=== PATIENT | male | born 1990 | race Asian ===

== ENCOUNTER 2024-07-07 21:57 | Emergency (ER) | payer OTHER, SELFPAY ==
[2024-07-07 21:58] VITALS: BP 147/96
--- NOTE | 2024-07-07 22:30 | EDRN ---
active bleeding. Dog up to date on shots per imaging technician.
--- NOTE | 2024-07-08 00:32 | ED.SKININJ ---
HPI-Injury
General
Chief Complaint: Bite
Source: patient and spouse
Exam Limitations: none
Time Seen by Provider: 07/08/24 00:20
Nursing documentation reviewed up to this point in time: agreed with
History of Present Illness-Injury
Initial Injury comments:
34-year-old male with no chronic medical issues presents for evaluation of dog bite. Patient says that he was laying next to his dog and startled the dog and it bit him on the right side of his face. He also got a scratch on his right arm. Came
to the ER for assessment. Patient unsure of his tetanus status. Dog is up-to-date on all vaccinations.
Review of Systems
Review of Systems
All Other Systems: ROS reviewed and negative except as documented in HPI and ROS
Skin: Reports other (Dog bite)
Phy Exam
Physical Exam
Physical Exam:
General: Well appearing and non-toxic
HEENT: protecting airway
Neck: appears supple
CV: No evidence of cyanosis
Resp: No accessory muscle use
Abd: Non-distended
Extremities: No deformities
Neuro: Alert
Psych: Normal affect
Skin: Patient has jagged/macerated laceration right lower cheek just above the jawline; he has minor superficial scratch on the right dorsal forearm
Scores
Heart Failure Risk
Heart Failure Risk Score: Not Applicable
Heart Score for Chest Pain Patients
STEMI patient?: Not applicable
Withdrawal Assessment of Alcohol
Withdrawal Assessment Completed?: Not applicable
Course
Orders/Labs/Results
Orders:
Orders
07/08/24 00:31
Amoxicillin 875 mg/Clav 125 mg [Augmentin 875 mg/125 mg] 1 tablet PO NOW STA
Tetanus/Diphth/Acelpertussis [Adacel] 0.5 ml IM .ONCE ONE
07/08/24 00:32
Lidocaine/Epinephrine/Tetracai [Let Topical Anesthetic Gel] 3 ml TOPICAL NOW STA
Vital Signs
Initial and Last Documented VS:
Initial Vital Signs
Temp Pulse Resp BP Pulse Ox
36.8 C 75 20 147/96 99
07/07/24 21:58 07/07/24 21:58 07/07/24 21:58 07/07/24 21:58 07/07/24 21:58
Last Documented Vital Signs
Temp Pulse Resp BP Pulse Ox
36.8 C 75 20 147/96 99
07/07/24 21:58 07/07/24 21:58 07/07/24 21:58 07/07/24 21:58 07/07/24 21:58
Procedures
Laceration Closure
Right Face:
Status of Wound: dirty and bite
Size of Wound in cm: 5
Description of Wound Edges: ragged
Preparation: cleaned with saline
Anesthesia: 1% Lidocaine with epi and Topical-LET
Revision/Debridement: minor revision and irrigate-direct pressure
Wound exploration: extensive cleaning of contaminated wound
Type of Closure: single layer closure
Skin Closure Material: 6-0 prolene
Number of sutures: 8
MDM/Problems Addressed
Differential Diagnosis Includes:
Dog bite
MDM/Problems Addressed:
34-year-old male presents with dog bite to the right lower face also has minor scratch to the right forearm. Vitals and exam as above. Dog is up-to-date on vaccinations. Patient unsure of his own tetanus status. Will update tetanus. Vigorously
irrigate and repair laceration given location on the face�discussed with patient risks and benefits of repair with sutures given that it is a dog bite and he is amenable to repair given that it is on his face. Will start on Augmentin.
Wound vigorously irrigated and repaired as documented in procedure note. Stable for discharge on oral antibiotic. Spoke about follow-up plan and return precautions. All questions answered.
*Pulse Oximetry
Patient hypoxic: no
*Critical Care Note
Total Time (30-74mins, 75-104mins- exclusive of procedures): Not Applicable
Data Reviewed
Source: patient and spouse
ED Attending Note
-
Portions of this chart may have been created with voice recognition software.� Occasional wrong word or��sound alike� substitutions may have occurred due to the inherent limitations of voice recognition software.
Discharge Plan
Departure
Patient Disposition: Home (Routine Discharge)
Date of Disposition: 07/08/24
Time of Disposition: 01:31
Patient with high blood pressure during this ER visit?: Yes
Discharge Problem:
Dog bite, Laceration of face
Instructions: Animal Bites (DC), Laceration Repair With Stitches (DC)
Prescriptions:
New
amoxicillin-pot clavulanate 875-125 mg tablet
1 tab PO BID Qty: 14 0RF
Referrals:
Noel Golden MD [Family Provider] - Follow up in 5-7 days
Activity Restrictions/Additional Instructions:
You were seen in the emergency room for dog bite. You had a laceration on your face which were repaired with stitches. You must have your stitches removed in 7 days�you can either return here to the emergency room, follow-up with your primary
doctor, or go to urgent care to have your stitches removed.
You were started on a prophylactic antibiotic. You must take your antibiotic as prescribed. If you notice signs of infection despite taking antibiotic you should return immediately to the emergency room. Signs of infection include redness,
swelling, pain, drainage, fever.
Interventions
Interventions:
*Risk Screen - Suicide Last Done: 07/07/24 22:27
*General Assessment Last Done: 07/07/24 21:58
*Neglect/Abuse Screening Last Done: 07/07/24 22:27
*ED- Fall Risk Assessment Last Done: 07/07/24 22:27
*ED COVID-19 Vaccine History Last Done: 07/07/24 22:27
ED-Skin Assessment Last Done: 07/07/24 22:27
Discharge Date and Time
Print Language: HEBREW
[2024-07-08] MEDS: LET TOPICAL ANESTHETIC GEL 3 ML TOPICAL (00:42)
[2024-07-08] MEDS: ADACEL 0.5 ML IM (01:03)
[2024-07-08] MEDS: AUGMENTIN 875 MG/125 MG 1 TABLET PO (01:03)
[2024-07-08 01:45] VITALS: BP 134/81
[2024-07-08 01:52] VITALS: BP 134/81
== END 2024-07-08 01:45 | disposition home or self-care (01) ==
LOC: EMR 21:57
PROVIDERS: EMERGENCY PHYSICIAN Emergency Medicine; FAMILY PHYSICIAN Internal Medicine
DX: S01.81XA Laceration without foreign body of other part of head, initial encounter (principal); S50.811A Abrasion of right forearm, initial encounter; W54.0XXA Bitten by dog, initial encounter; Z23 Encounter for immunization
CPT/HCPCS: 12052; 90471; 99283; 90715